=== PATIENT | female | born 1990 | race African-American/Black ===

== ENCOUNTER 2017-11-17 21:21 | Emergency (ER) | payer MEDICAID, OTHER ==
[~2017-11-17] VITALS: Ht 154.9 cm; Wt 46.7 kg
[2017-11-18 00:08] VITALS: BP 118/74
== END 2017-11-18 00:16 | disposition home or self-care (01) ==
LOC: EEVIPCON 21:21 → ER 21:21
DX: S05.10XA Contusion of eyeball and orbital tissues, unspecified eye, initial encounter (principal); Z88.6 Allergy status to analgesic agent; X99.1XXA Assault by knife, initial encounter; Y93.89 Activity, other specified; Y92.89 Other specified places as the place of occurrence of the external cause; Y99.8 Other external cause status
CPT/HCPCS: 70450; 70486; 71046

== ENCOUNTER 2020-05-26 08:59 | Emergency (ER) | payer MEDICAID ==
[~2020-05-26] VITALS: Ht 154.9 cm; Wt 61.2 kg
[2020-05-26] MEDS ORDERED: ONDANSETRON ODT 4 MG TAB PO ONE (11:15)
[2020-05-26 11:49] LABS: Urine Bacteria NONE SEEN /hpf (None Seen); Urine Blood Negative /uL (Negative); Urine Mucus FEW (None Seen); Urine WBC 10 /hpf (0 - 5)
[2020-05-26 12:02] LABS: Amphetamine Screen, Urine NEGATIVE (NEGATIVE); Barbiturate Scree,Urine NEGATIVE (NEGATIVE); Benzodiazephine Screen, Urine NEGATIVE (NEGATIVE); Cannabinoid Screen, Urine POSITIVE (NEGATIVE); Cocaine Screen, Urine NEGATIVE (NEGATIVE)
[2020-05-26 12:09] LABS: Opiate Scree,Urine NEGATIVE (NEGATIVE); Phencyclidine Screen, Urine NEGATIVE (NEGATIVE)
[2020-05-26 12:41] VITALS: BP 101/63
== END 2020-05-26 12:49 | disposition home or self-care (01) ==
LOC: ER 08:59
DX: N39.0 Urinary tract infection, site not specified (principal); R11.0 Nausea; F12.929 Cannabis use, unspecified with intoxication, unspecified; Z88.8 Allergy status to other drugs, medicaments and biological substances
CPT/HCPCS: 80307; 81001; 81025; 99283; Q0162

== ENCOUNTER 2020-11-25 23:16 | Emergency (ER) | payer OTHER, MEDICAID ==
[~2020-11-25] VITALS: Ht 154.9 cm; Wt 61.2 kg
[2020-11-26 00:26] VITALS: BP 136/79
== END 2020-11-26 03:05 | disposition home or self-care (01) ==
LOC: ER 23:23
DX: Z34.92 Encounter for supervision of normal pregnancy, unspecified, second trimester (principal); Z3A.14 14 weeks gestation of pregnancy
CPT/HCPCS: 76801

== ENCOUNTER 2021-05-18 04:29 | Inpatient (IN) | payer OTHER, MEDICAID ==
[~2021-05-18] VITALS: Ht 154.9 cm; Wt 68.5 kg
[2021-05-18] MEDS ORDERED: WITCH HAZEL-GLYCERIN PAD TOP PRN (05:15)
[2021-05-18] MEDS ORDERED: LIDOCAINE 2%HCL (LOCAL ANESTH.) INJ 20ML MDV IJ PRN (05:15)
[2021-05-18] MEDS ORDERED: PROMETHAZINE HCL 25 MG/ML 1ML IV PRN (05:15)
[2021-05-18] MEDS ORDERED: PENICILLIN G POT 5MIL/D5 50ML 50 ML IV ONE (05:15)
[2021-05-18] MEDS ORDERED: PHISODERM TOP SOLN 240ML BTL TOP PRN (05:15)
[2021-05-18] MEDS ORDERED: LACTATED RINGER'S 1,000 ML IV SCH (05:15)
[2021-05-18] MEDS ORDERED: BUTORPHANOL TARTRATE 2 MG/1 ML VIAL IV PRN ×2 (05:15)
[2021-05-18] MEDS ORDERED: LACT. RINGERS/OXYTOCIN 20UNITS 500 ML IV ONE ×2 (06:30→07:00)
[2021-05-18] MEDS ORDERED: LACT. RINGERS/OXYTOCIN 20UNITS 1,000 ML IV ONE (06:31)
[2021-05-18] MEDS ORDERED: LIDOCAINE 2%HCL (LOCAL ANESTH.) INJ 20ML MDV ONE (06:51)
[2021-05-18] MEDS ORDERED: METHYLERGONOVINE MALEATE 0.2 MG/ML AMP IM ONE ×2 (07:00→07:23)
[2021-05-18] MEDS ORDERED: DERMOPLAST 60ML BOTTLE TOP PRN (07:00)
[2021-05-18] MEDS ORDERED: miSOPROStol 50 MCG per PRE-CUT 1/2 TAB PO STA (07:04)
[2021-05-18 08:06] LABS: Urine Bacteria NONE SEEN /hpf (None Seen); Urine Blood TRACE /uL (Negative); Urine Specific Gravity 1.021 (1.001-1.035); Urine WBC 1 /hpf (0 - 5)
[2021-05-18 08:16] LABS: Eosinophils # (auto) 0 10 ^3/uL (0-0.8); Hematocrit 33.7 % (36.0-46.0); INR 0.91 (0.9-1.15)
[2021-05-18 08:17] LABS: Basophils # (auto) 0 10 ^3/uL (0-0.2); Basophils % (auto) 0.1 % (0.0-2.0); Lymphocytes # (auto) 0.9 10 ^3/uL (0.4-5.4); Lymphocytes % (auto) 4.3 % (10.0-50.0); Mean Corpuscular Hemoglobin 24.7 pg (28.0-32.0); Mean Corpuscular Hgb Conc. 32.7 g/dL (32.0-36.0); Mean Corpuscular Volume 75.5 fL (80.0-100.0); Monocytes # (auto) 0.7 10 ^3/uL (0-1.3); Monocytes % (auto) 3.4 % (0.0-12.0); Neutrophils % (auto) 92.2 % (37.0-80.0); Nucleated Red Blood Cells % 0.1 %; Red Blood Cells 4.47 10^6/uL (4.0-5.20); Red Cell Distribution Width 19.8 % (11.8-14.3); White Blood Cell 20.6 10^3/uL (4.4-10.8)
[2021-05-18 08:23] LABS: Alanine Aminotransferase 15 U/L (13-56); Albumin 2.8 g/dL (3.4-5.0); Anion Gap 13 (5-15); Aspartate Aminotransferase 25 U/L (15-37); BUN/Creatinine Ratio 9.7; Blood Urea Nitrogen 7 mg/dL (7-18); Calcium 9.3 mg/dL (8.5-10.1); Carbon Dioxide 19 mmol/L (21-32); Chloride 106 mmol/L (98-107); GFR African American 124 mL/min; GFR Non-African American 103 mL/min; Glucose 126 mg/dL (74-106); Potassium 3.8 mmol/L (3.5-5.1); Sodium 138 mmol/L (136-145)
[2021-05-18 08:26] LABS: Alkaline Phosphatase 194 U/L (45-117); Bilirubin, Total 0.4 mg/dL (0.2-1.0); Total Protein 7.4 g/dL (6.4-8.2)
[2021-05-18 08:27] LABS: Alcohol, Urine < 3.0 mg/dL (0-10); Amphetamine Screen, Urine NEGATIVE (NEGATIVE); Barbiturate Scree,Urine NEGATIVE (NEGATIVE); Benzodiazephine Screen, Urine NEGATIVE (NEGATIVE); Cannabinoid Screen, Urine NEGATIVE (NEGATIVE); Cocaine Screen, Urine NEGATIVE (NEGATIVE); Opiate Scree,Urine NEGATIVE (NEGATIVE); Phencyclidine Screen, Urine NEGATIVE (NEGATIVE)
[2021-05-18] MEDS ORDERED: IBUPROFEN 600 MG TAB PO PRN (09:00)
[2021-05-18] MEDS ORDERED: ACETAMINOPHEN 325 MG TAB PO PRN (09:00)
[2021-05-18] MEDS ORDERED: PENICILLIN G POTASSIUM 2,500,000 UNITS in D5W 5% 50 ML IV SCH (09:15)
[2021-05-18 15:17] VITALS: BP 115/67
[2021-05-18] MEDS ORDERED: DEXTROSE (ORAL) 12.5g/31ml 0.4g/ml GEL PO STA (17:46)
[2021-05-18 19:00] VITALS: BP 131/73
[2021-05-18] MEDS ORDERED: DOCUSATE SOD 100 MG CAP PO SCH (22:00)
[2021-05-18 23:00] VITALS: BP 113/62
[2021-05-18] MEDS ORDERED: LORATADINE 10 MG TAB PO PRN (23:15)
[2021-05-19 03:00] VITALS: BP 117/65
[2021-05-19] MEDS ORDERED: TETANUS-DIPTH-ACEL PERTUSSIS 0.5ML SYR Tdap IM ONE (11:15)
[2021-05-20 06:06] LABS: RPR Non Reactive (Non Reactive)
== END 2021-05-19 15:00 | disposition home or self-care (01) | DRG 807 ==
LOC: LDRP 04:29 → OBSVTOIN 05:00
PROVIDERS: ADMIT Obstetrics & Gynecology; ATTEND Obstetrics & Gynecology
PROC: 10E0XZZ Delivery of Products of Conception, External Approach (ICD-10-PCS; principal; 2021-05-18)
DX: O24.429 Gestational diabetes mellitus in childbirth, unspecified control (principal); Z37.0 Single live birth; Z3A.39 39 weeks gestation of pregnancy; Z20.822 Contact with and (suspected) exposure to COVID-19
CPT/HCPCS: 36415; 59025; 59409; 80053; 80307; 81001; 85025; 85610; 85730; 86592; 86703; 86762; 86850; 86900; 86901; 87340; 87426; 90715; 94760; 96365; 96366; 96372; G0378; J2540; J2590; J7060